=== PATIENT | male | born 1985 | race Caucasian/White ===

== ENCOUNTER → 2019-01-04 | Outpatient (CLI) | payer OTHER, SELFPAY ==
[2019-01-04 18:09] VITALS: BMI 39.9
[2019-01-04 22:48] LABS: Absolute Lymphocyte Count 2.87 X10^3/uL (0.83-4.51); Absolute Neutrophil Count 5.3 X10^3/uL (2.0-7.7); Eosinophil# 0.42 X10^3/uL; Eosinophils% 4.4 % (0-5); Hematocrit 46.3 % (40-54); Hemoglobin 16.3 g/dL (13.0-16.5); Lymphocyte # 2.87 X10^3/ul (4.0); Lymphocyte % 30.1 % (19-41); Mean Corp Hgb Conc 35.2 g/dL (32-36); Mean Corpuscular Hgb 31.5 pg (27.0-32.0); Mean Corpuscular Volume 89.6 fL (80-94); Mean Platelet Vol. 11.1 fl (6.2-12.0); Monocyte# 0.88 X10^3/uL; Monocyte% 9.2 % (0-10); NRBC Flagged by Analyzer 0 % (0-5); Neutrophil # 5.25 X10^3/uL (2.7-7.7); Neutrophil % 55.1 % (47-70); Platelet Count 242 K/mm3 (150-450); RBC Distribution Width CV 12.2 % (11.6-14.6); RBC Distribution Width SD 40.1 fl (35.1-43.9); Red Blood Count 5.17 M/mm3 (4.6-6.2); White Blood Count 9.5 K/mm3 (4.4-11.0)
[2019-01-04 23:10] LABS: ALB/GLOB Ratio 1.4 RATIO (0.9-2.4); AST(SGOT) 21 U/L (15-37); Alanine Aminotransfer ALT/SGPT 47 U/L (16-61); Albumin, Serum 4.3 g/dL (3.2-5.0); Alkaline Phosphatase 68 U/L (45-117); Anion Gap 8 (5-15); BUN 15 mg/dL (7-18); Calcium,Total 8.8 mg/dL (8.5-10.1); Chloride 104 mmol/L (98-107); Cholesterol 172 mg/dL (200); EST Glomerular Filtration Rate 90 mL/min (>60); Est Glom Filt Rate - Afr Amer 109 mL/min (>60); Globulin 3.1 g/dL (2.2-4.2); Glucose 194 mg/dL (74-106); High Density Lipoprotein 30 mg/dL; Potassium 3.8 mmol/L (3.5-5.1); Protein, Total 7.4 g/dL (6.4-8.2); Sodium Level 141 mmol/L (136-145); Triglycerides 199 mg/dL; Very Low Density Lipoprotein 40 mg/dL (5-40)
== END | disposition home or self-care (01) ==
PROVIDERS: Referring Provider Nurse Practitioner; Visit Provider Nurse Practitioner
DX: I10 Essential (primary) hypertension (principal)
CPT/HCPCS: 80053; 80061; 84443; 85025